=== PATIENT | female | born 1975 | race Caucasian/White ===

== ENCOUNTER 2016-07-22 09:19 | Emergency (ER) | payer SELFPAY ==
[2016-07-22 10:17] VITALS: BP 110/66
--- NOTE | 2016-07-22 11:11 | UC ---
Respiratory Complaint HPI - HPI Summary HPI Summary: uri for over two weeks has been having worsening sinus pain, congestion and fever - History of Current Complaint Chief Complaint: UCGeneralIllness Stated Complaint: CHILLS/COUGH Time Seen by Provider: 07/22/16 11:02 Hx Obtained From: Patient Hx Last Menstrual Period: 07/12/16 ?: No Onset/Duration: Gradual Onset, Lasting Weeks - 2 or more, Worse Since - past several days Timing: Constant Severity Initially: Mild Severity Currently: Moderate Pain Intensity: 6 Pain Scale Used: 0-10 Numeric Character: Cough: Nonproductive Aggravating Factors: Nothing Alleviating Factors: Nothing Associated Signs And Symptoms: Positive: Fever, Chills, Nasal Congestion, Sinus Discomfort - Allergies/Home Medications Allergies/Adverse Reactions: Allergies Allergy/AdvReac Type Severity Reaction Status Date / Time No Known Allergies Allergy Verified 01/12/14 22:17 PMH/Surg Hx/FS Hx/Imm Hx Previously Healthy: Yes - Surgical History Surgical History: Yes Surgery Procedure, Year, and Place: C-Sections, 2000 2001, [facility]. Tonsillectomy , 2000, [facility]. ACL repair and 2 pins for a fx-01/2016 - Family History Known Family History: Positive: None Family History: denies cardiovascular issues in family lineage - Social History Occupation: Employed Full-time Lives: With Family Alcohol Use: None Substance Use Type: None Smoking Status (MU): Never Smoked Tobacco Type: Cigarettes Amount Used/How Often: 1/3 PPD Length of Time of Smoking/Using Tobacco: On and Off for 24 Years Have You Smoked in the Last Year: Yes When Did the Patient Quit Smoking/Using Tobacco: 07/21/15 Review of Systems Constitutional: Chills, Fatigue Skin: Negative Eyes: Negative ENT: Nasal Discharge Respiratory: Cough Cardiovascular: Negative Gastrointestinal: Negative Genitourinary: Negative Motor: Negative Neurovascular: Negative Musculoskeletal: Negative Neurological: Negative Psychological: Negative All Other Systems Reviewed And Are Negative: Yes Physical Exam Triage Information Reviewed: Yes Appearance: Well-Nourished, Ill-Appearing - mild, Pain Distress - mild Vital Signs: Initial Vital Signs Temp 98.1 F 07/22/16 10:11 Pulse 73 07/22/16 10:11 Resp 16 07/22/16 10:11 BP 110/66 07/22/16 10:11 Pulse Ox 99 07/22/16 10:11 Vital Signs Reviewed: Yes Eye Exam: Normal Eyes: Positive: Conjunctiva Clear ENT Exam: Normal ENT: Positive: Normal ENT inspection, Hearing grossly normal, Pharynx normal, Nasal congestion, Nasal drainage, TMs normal. Negative: Tonsillar swelling, Tonsillar exudate, Trismus, Muffled/hoarse voice Dental Exam: Normal Neck exam: Normal Neck: Positive: Supple, Nontender, No Lymphadenopathy Respiratory Exam: Normal Respiratory: Positive: Chest non-tender, Lungs clear, Normal breath sounds, No respiratory distress, No accessory muscle use Cardiovascular Exam: Normal Cardiovascular: Positive: RRR, No Murmur, Pulses Normal, Brisk Capillary Refill Musculoskeletal Exam: Normal Musculoskeletal: Positive: Strength Intact, ROM Intact, No Edema Neurological Exam: Normal Neurological: Positive: Alert, Muscle Tone Normal Psychological Exam: Normal Skin Exam: Normal UC Diagnostic Evaluation - Laboratory O2 Sat by Pulse Oximetry: 99 Respiratory Course/Dx - Course Course Of Treatment: Augmentin, sudafed, mucinex (pt refuses nasal spray), increase fluids follow with pcp - Differential Dx/Diagnosis Differential Diagnosis/HQI/PQRI: Bronchitis, Influenza, Laryngitis, Lower Resp Infection, Sinusitis Provider Diagnoses: Acute Sinusitis Discharge - Discharge Plan Condition: Stable Disposition: HOME Prescriptions: Amoxicillin/Clavulanate TAB* [Augmentin TAB 875*] 875 mg PO BID #20 tab Patient Education Materials: Sinusitis (ED), Nasal Rinse (ED) Referrals: Sierra García MD [Primary Care Provider] - If Needed
== END 2016-07-22 11:19 | disposition home or self-care (01) ==
LOC: UCCORT 09:19
DX: J01.90 Acute sinusitis, unspecified (principal); Z87.891 Personal history of nicotine dependence
CPT/HCPCS: 99212; G0463

== ENCOUNTER 2017-03-28 14:32 | Emergency (ER) | payer OTHER ==
[2017-03-28 15:15] VITALS: BP 105/76
--- NOTE | 2017-03-28 15:25 | UC ---
Respiratory Complaint HPI - HPI Summary HPI Summary: 42 yo female with facial pressure and pain x 5 days upper teeth and gums painful blood tinged nasal d/c no f/c - History of Current Complaint Chief Complaint: UCGeneralIllness Stated Complaint: SINUS ISSUE Time Seen by Provider: 03/28/17 15:08 Hx Obtained From: Patient Hx Last Menstrual Period: 02/22/17 Onset/Duration: Gradual Onset, Lasting Days Severity Initially: Moderate Severity Currently: Moderate Pain Intensity: 4 Character: Cough: Nonproductive Alleviating Factors: Nothing Associated Signs And Symptoms: Positive: Nasal Congestion, Sinus Discomfort Related History: Similar Episode/Dx as: - sinusitis - Allergies/Home Medications Allergies/Adverse Reactions: Allergies Allergy/AdvReac Type Severity Reaction Status Date / Time No Known Allergies Allergy Verified 03/28/17 15:14 Home Medications: Home Medications Pseudoephedrine-Ibuprofen [Cold & Sinus Relief 30-200 mg] 2 tab PO 03/28/17 [ History] PMH/Surg Hx/FS Hx/Imm Hx Previously Healthy: Yes - Surgical History Surgical History: Yes Surgery Procedure, Year, and Place: C-Sections, 2000 2001, [facility]. Tonsillectomy , 2000, [facility]. ACL repair and 2 pins for a fx-01/2016 - Family History Known Family History: Positive: None Family History: denies cardiovascular issues in family lineage - Social History Alcohol Use: Rare Substance Use Type: None Smoking Status (MU): Former Smoker Type: Cigarettes Amount Used/How Often: 1/3 PPD Length of Time of Smoking/Using Tobacco: On and Off for 24 Years Have You Smoked in the Last Year: Yes When Did the Patient Quit Smoking/Using Tobacco: 07/21/15 Review of Systems Constitutional: Negative Skin: Negative Eyes: Negative ENT: Epistaxis, Dental Pain, Nasal Discharge, Sinus Congestion, Sinus Pain/ Tenderness Respiratory: Negative Cardiovascular: Negative Gastrointestinal: Negative Genitourinary: Negative Motor: Negative Neurovascular: Negative Musculoskeletal: Negative Neurological: Negative Psychological: Negative Is Patient Immunocompromised?: No All Other Systems Reviewed And Are Negative: Yes Physical Exam Triage Information Reviewed: Yes Appearance: Well-Appearing, No Pain Distress, Well-Nourished Vital Signs: Initial Vital Signs Temp 98.4 F 03/28/17 15:09 Pulse 72 03/28/17 15:09 Resp 16 03/28/17 15:09 BP 105/76 03/28/17 15:09 Pulse Ox 100 03/28/17 15:09 Vital Signs Reviewed: Yes Eyes: Positive: Conjunctiva Clear ENT: Positive: Hearing grossly normal, Nasal congestion, Nasal drainage, TMs normal, Other: - bilateral max sinus tenderness. Negative: Tonsillar swelling, Tonsillar exudate, Trismus, Muffled/hoarse voice Neck: Positive: Supple, Nontender, No Lymphadenopathy Respiratory: Positive: Lungs clear, Normal breath sounds, No respiratory distress, No accessory muscle use Cardiovascular: Positive: RRR, No Murmur Musculoskeletal: Positive: ROM Intact, No Edema Neurological: Positive: Alert Psychological Exam: Normal Skin Exam: Normal UC Diagnostic Evaluation - Laboratory O2 Sat by Pulse Oximetry: 100 - normal/not hypoxic Respiratory Course/Dx - Differential Dx/Diagnosis Provider Diagnoses: acute sinusitis Discharge - Discharge Plan Condition: Stable Disposition: HOME Prescriptions: Amoxicillin/Clavulanate TAB* [Augmentin TAB 875*] 875 mg PO BID #20 tab Patient Education Materials: Sinusitis (ED) Referrals: Sierra García MD [Primary Care Provider] - 4 Days (recheck in 4-7 days if not better)
== END 2017-03-28 15:28 | disposition home or self-care (01) ==
LOC: UCCORT 14:32
DX: J01.90 Acute sinusitis, unspecified (principal); Z87.891 Personal history of nicotine dependence
CPT/HCPCS: 99212; G0463